=== PATIENT | male | born 1970 | race African-American/Black ===

== ENCOUNTER 2022-04-06 08:41 | Emergency (ER) | payer MEDICAID, OTHER ==
[~2022-04-06] VITALS: Ht 195.6 cm; Wt 82.0 kg
[2022-04-06 08:48] VITALS: BP 216/140
[2022-04-06] MEDS ORDERED: CLONIDINE 0.2MG TABLET PO ONE (10:15)
[2022-04-06] MEDS ORDERED: KETOROLAC 60MG/2ML VIAL IM ONE (10:15)
== END 2022-04-06 17:11 | disposition left against medical advice (07) ==
LOC: ER 08:41
DX: R51.9 Headache, unspecified (principal); M54.2 Cervicalgia; M79.605 Pain in left leg
CPT/HCPCS: 99281